=== PATIENT | female | born 1970 | race Caucasian/White ===

== ENCOUNTER 2018-03-07 09:57 | Emergency (ER) | payer OTHER, BC ==
[2018-03-07 10:22] VITALS: BP 116/42
--- NOTE | 2018-03-07 10:30 | EDM.PDOC ---
ED HPI GENERAL MEDICAL PROBLEM - General Chief Complaint: Lower Extremity Injury/Pain Stated Complaint: KNEE WC INJURY 03/06/18 [id number] Time Seen by Provider: 03/07/18 10:22 Source of Information: Reports: Patient History Limitations: Reports: No Limitations - History of Present Illness INITIAL COMMENTS - FREE TEXT/NARRATIVE: This 47 yo female patient reports to the ED with anterior and lateral knee pain. The patient reports she was weeding the garden yesterday when she started to have some pain in her left knee. The patient reports she finished weeding, but started to notice increased pain and swelling in the knee throughout the day yesterday. The patient reports she did ice her knee for about 1 hour last night. This morning the patient reports she has continued to have pain with movement and has noticed additional swelling in the anterior knee. Onset Date: 03/06/18 Duration: Constant, Getting Worse Location: Reports: Lower Extremity, Left (knee) Quality: Reports: Ache, Dull Severity: Moderate Improves with: Reports: Rest Worsens with: Reports: Movement Context: Reports: Activity Associated Symptoms: Reports: No Other Symptoms Left Knee Pain Score (Numeric/FACES): 5 - Related Data Allergies Allergy/AdvReac Type Severity Reaction Status Date / Time paroxetine HCl [From Paxil] Allergy Bradycardia Verified 08/08/15 14:59 Home Meds: Home Meds Esomeprazole [NexIUM] 40 mg PO DAILY 08/08/15 [History] Estrogens, Conjugated [Premarin] 0.625 mg PO DAILY 08/08/15 [History] FLUoxetine [PROzac] 10 mg PO DAILY 08/08/15 [History] Fesoterodine Fumarate [Toviaz] 4 mg PO DAILY 08/08/15 [History] Past Medical History HEENT History: Reports: Impaired Vision Gastrointestinal History: Reports: GERD Psychiatric History: Reports: Depression - Past Surgical History GI Surgical History: Reports: Cholecystectomy Female Surgical History: Reports: Hysterectomy Review of Systems - Review of Systems Review Of Systems: ROS reveals no pertinent complaints other than HPI. ED EXAM, GENERAL - Physical Exam Exam: See Below Exam Limited By: No Limitations General Appearance: Alert, WD/WN, Mild Distress Eye Exam: Bilateral Eye: EOMI, Normal Inspection, PERRL Ears: Normal External Exam, Normal Canal, Hearing Grossly Normal, Normal TMs Nose: Normal Inspection, Normal Mucosa, No Blood Throat/Mouth: Normal Inspection, Normal Lips, Normal Teeth, Normal Gums, Normal Oropharynx, Normal Voice, No Airway Compromise Head: Atraumatic, Normocephalic Neck: Normal Inspection, Supple, Non-Tender, Full Range of Motion Respiratory/Chest: No Respiratory Distress, Lungs Clear, Normal Breath Sounds, No Accessory Muscle Use, Chest Non-Tender Cardiovascular: Normal Peripheral Pulses, Regular Rate, Rhythm, No Edema, No Gallop, No JVD, No Murmur, No Rub GI/Abdominal: Normal Bowel Sounds, Soft, Non-Tender, No Organomegaly, No Distention, No Abnormal Bruit, No Mass (Female) Exam: Deferred Rectal (Female) Exam: Deferred Back Exam: Normal Inspection, Full Range of Motion, NT Extremities: Leg Pain (The patient reports pain with palpation of her left anterior and lateral knee joint space. Assessment of the knee revealed that the knee was stable with only minor laxity during assessment. There was swelling surrounding the patellar tendon. ) Neurological: Alert, Oriented, CN II-XII Intact, Normal Cognition, Normal Gait, Normal Reflexes, No Motor/Sensory Deficits Psychiatric: Normal Affect, Normal Mood Skin Exam: Warm, Dry, Intact, Normal Color, No Rash Lymphatic: No Adenopathy Course - Vital Signs Last Recorded V/S: Last Vital Signs Temp 36.4 C 03/07/18 10:21 Pulse 56 L 03/07/18 10:21 Resp 16 03/07/18 10:21 BP 116/42 L 03/07/18 10:21 Pulse Ox 95 03/07/18 10:21 - Orders/Labs/Meds Orders: Active Orders 24 hr Category Date Time Status DME for Discharge [COMM] Urgent Oth 03/07/18 10:55 Ordered Departure - Departure Time of Disposition: 10:56 Disposition: Home, Self-Care 01 Condition: Fair Clinical Impression: Effusion, left knee Strain of left knee Qualifiers: Encounter type: initial encounter Qualified Code(s): S86.912A - Strain of unspecified muscle(s) and tendon(s) at lower leg level, left leg, initial encounter - Discharge Information *PRESCRIPTION DRUG MONITORING PROGRAM REVIEWED*: Not Applicable *COPY OF PRESCRIPTION DRUG MONITORING REPORT IN PATIENT ELIANA: Not Applicable Instructions: Knee Effusion, [id number], Knee Sprain, Adult, [id number] Forms: ED Department Discharge Care Plan Goals: The patient was advised of the examination and x-ray results during the visit. The patient was encouraged to rest, ice and elevate the left knee. The patient was placed in a left knee immobilizer and given a set of crutches while in the ED. The patient was encouraged to take ibuprofen for the antiinflammatory properties. If the patient continues to have symptoms or further concerns, the patient should follow-up with her primary care facility or return to the emergency department. - My Orders Last 24 Hours: My Active Orders 03/07/18 10:55 DME for Discharge [COMM] Urgent - Assessment/Plan Last 24 Hours: My Active Orders 03/07/18 10:55 DME for Discharge [COMM] Urgent
--- NOTE | 2018-03-07 10:51 | CR ---
Clinical history: 47-year-old female injured knee (weaning garden). Interpretation: Abnormal. AP lateral sunrise views left knee confirm large suprapatellar bursal effusion (internal derangement? ). Homogeneous normal bone density and symmetric normal spacing of the knee joint level (reactive sclero sis tibial plateau medially). No sign of right knee fracture, dislocation or radiopaque loose joint body (fabella posteriorly). CONCLUSION: Large left knee joint effusion suggesting internal derangement. No fracture or dislocatio n.
== END 2018-03-07 11:33 | disposition home or self-care (01) ==
LOC: DL.ED 09:57
DX: S86.912A Strain of unspecified muscle(s) and tendon(s) at lower leg level, left leg, initial encounter (principal); Z88.8 Allergy status to other drugs, medicaments and biological substances; Z79.899 Other long term (current) drug therapy; X58.XXXA Exposure to other specified factors, initial encounter
CPT/HCPCS: 73562-LT; 99283